=== PATIENT | male | born 1970 | race African-American/Black ===

== ENCOUNTER 2020-11-01 12:31 | Inpatient (IN) | payer OTHER ==
[2020-11-01 13:19] VITALS: BMI 43.6
[2020-11-01] MEDS ORDERED: methaDONE HCL 10 MG TABLET (FOR DETOX USE ONLY) ONE (14:23)
[2020-11-01] MEDS ORDERED: clonazePAM 0.5 MG ODT TABLETS SL PRN (14:33)
[2020-11-01] MEDS ORDERED: MENTHOL/PHENOL 1 EACH UD MM PRN (14:33)
[2020-11-01] MEDS ORDERED: MAGNESIUM HYDROX 2400MG/30ML ORAL SUSPENSION 30 ML CUP PO PRN (14:33)
[2020-11-01] MEDS ORDERED: ONDANSETRON *ODT* 4 MG TABLET SL PRN (14:33)
[2020-11-01] MEDS ORDERED: NICOTINE 10 MG CARTRIDGE (INHALER) IH PRN (14:33)
[2020-11-01] MEDS ORDERED: ACETAMINOPHEN 325 MG TABLET (FP) PO PRN ×2 (14:33)
[2020-11-01] MEDS ORDERED: methaDONE HCL 10 MG TABLET (FOR DETOX USE ONLY) PO ONE (14:33)
[2020-11-01] MEDS ORDERED: MAGNESIUM CITRATE 300 ML BOTTLE PO PRN (14:33)
[2020-11-01] MEDS ORDERED: cloNIDine HCL 0.1 MG TABLET PO PRN (14:33)
[2020-11-01] MEDS ORDERED: MAG HYDROX/AL HYDROX/SIMETH 30 ML UNIT-DOSE CUP PO PRN (14:33)
[2020-11-01] MEDS ORDERED: IBUPROFEN 400 MG TABLET (FP) PO PRN (14:33)
[2020-11-01] MEDS ORDERED: BISMUTH SUBSALICYLATE 262 MG/15 ML BTL PO PRN (14:33)
[2020-11-01 15:55] LABS: HEMATOCRIT 34.9 % (35.4-49); HEMOGLOBIN 11.8 GM/dL (11.7-16.9); MCH 29.9 pg (25.7-33.7); MCHC 33.9 g/dl (32.0-35.9); MEAN CELL VOLUME 88.4 fl (80-96); MEAN PLT VOLUME 7.6 fl (7.5-11.1); PLATELET COUNT 337 10^3/uL (134-434); RBC 3.95 M/mm3 (4.00-5.60); RDW 16.2 % (11.9-15.9); WHITE BLOOD COUNT 6.8 K/mm3 (4.0-10.0)
[2020-11-01 15:56] LABS: ALBUMIN 3.4 g/dl (3.4-5.0); BLOOD UREA NITROGEN 13.4 mg/dL (7-18); CALCIUM 8.5 mg/dL (8.5-10.1)
[2020-11-01 16:00] LABS: CREATININE 0.9 mg/dL (0.55-1.3)
[2020-11-01 16:02] LABS: BILIRUBIN,TOTAL 0.3 mg/dL (0.2-1); TOT PROT 6.8 g/dl (6.4-8.2)
[2020-11-01 16:50] LABS: HIV INTERPRETATION NEGATIVE (NEGATIVE)
[2020-11-01] MEDS: hydrOXYzine PAMOATE 25 MG CAPSULE (FP) PO SCH ×2 (18:06→22:28)
[2020-11-01] MEDS: MELATONIN 5 MG TABLETS PO SCH (22:28)
[2020-11-01] MEDS: THIAMINE HCL 100 MG TABLET (FP) PO SCH (22:28)
[2020-11-02] MEDS: hydrOXYzine PAMOATE 25 MG CAPSULE (FP) PO SCH ×5 (06:43→22:55)
[2020-11-02] MEDS ORDERED: methaDONE HCL 10 MG TABLET (FOR DETOX USE ONLY) ONE (09:23)
[2020-11-02] MEDS: PRENATAL VITAMINS W/ FOLIC ACID TABLET (FP) PO SCH (10:19)
[2020-11-02] MEDS: MELATONIN 5 MG TABLETS PO SCH (22:55)
[2020-11-02] MEDS: THIAMINE HCL 100 MG TABLET (FP) PO SCH (22:55)
[2020-11-03] MEDS: hydrOXYzine PAMOATE 25 MG CAPSULE (FP) PO SCH ×6 (05:36→23:05)
[2020-11-03] MEDS ORDERED: methaDONE HCL 10 MG TABLET (FOR DETOX USE ONLY) PO ONE (10:00)
[2020-11-03] MEDS: METHOCARBAMOL 500 MG TABLET PO PRN (10:13)
[2020-11-03] MEDS: PRENATAL VITAMINS W/ FOLIC ACID TABLET (FP) PO SCH (10:13)
[2020-11-03] MEDS ORDERED: MASKS NR ONE (17:45)
[2020-11-03] MEDS: THIAMINE HCL 100 MG TABLET (FP) PO SCH ×2 (22:41→23:05)
[2020-11-03] MEDS: MELATONIN 5 MG TABLETS PO SCH (22:41)
[2020-11-04] MEDS: hydrOXYzine PAMOATE 25 MG CAPSULE (FP) PO SCH ×5 (07:06→23:21)
[2020-11-04] MEDS ORDERED: methaDONE HCL 10 MG TABLET (FOR DETOX USE ONLY) ONE (09:25)
[2020-11-04] MEDS: METHOCARBAMOL 500 MG TABLET PO PRN (11:03)
[2020-11-04] MEDS: PRENATAL VITAMINS W/ FOLIC ACID TABLET (FP) PO SCH (11:03)
[2020-11-04] MEDS: THIAMINE HCL 100 MG TABLET (FP) PO SCH (23:21)
[2020-11-04] MEDS: MELATONIN 5 MG TABLETS PO SCH (23:21)
[2020-11-05] MEDS: hydrOXYzine PAMOATE 25 MG CAPSULE (FP) PO SCH ×5 (06:19→23:14)
[2020-11-05] MEDS: PRENATAL VITAMINS W/ FOLIC ACID TABLET (FP) PO SCH (09:27)
[2020-11-05] MEDS: METHOCARBAMOL 500 MG TABLET PO PRN (09:27)
[2020-11-05] MEDS ORDERED: methaDONE HCL 10 MG TABLET (FOR DETOX USE ONLY) PO ONE (10:00)
[2020-11-05] MEDS: THIAMINE HCL 100 MG TABLET (FP) PO SCH (23:14)
[2020-11-05] MEDS: MELATONIN 5 MG TABLETS PO SCH (23:14)
[2020-11-06] MEDS: hydrOXYzine PAMOATE 25 MG CAPSULE (FP) PO SCH ×2 (05:44→10:03)
[2020-11-06 09:18] VITALS: BP 148/89; PULSE 85; TEMP 96.8
[2020-11-06] MEDS: PRENATAL VITAMINS W/ FOLIC ACID TABLET (FP) PO SCH (10:03)
== END 2020-11-06 12:45 | disposition other institution (70) | DRG 773 ==
LOC: YASAS 12:31 → Y3N 13:54
PROVIDERS: ADMIT Allergy & Immunology; ATTEND Allergy & Immunology
PROC: HZ2ZZZZ Detoxification Services for Substance Abuse Treatment (ICD-10-PCS; principal; 2020-11-01)
DX: F11.23 Opioid dependence with withdrawal (principal); F17.210 Nicotine dependence, cigarettes, uncomplicated; I69.854 Hemiplegia and hemiparesis following other cerebrovascular disease affecting left non-dominant side; Z91.013 Allergy to seafood; Z91.018 Allergy to other foods
CPT/HCPCS: 36415; 80053; 82947; 85027; 86780; 87389; C9803; U0003; U0005

== ENCOUNTER 2020-11-06 12:48 | Inpatient (IN) | payer OTHER ==
[2020-11-06] MEDS ORDERED: MAGNESIUM HYDROX 2400MG/30ML ORAL SUSPENSION 30 ML CUP PO PRN (15:07)
[2020-11-06] MEDS ORDERED: ACETAMINOPHEN 325 MG TABLET (FP) PO PRN (15:07)
[2020-11-06] MEDS ORDERED: P-EPHED 60MG/TRIPROLIDI 2.5MG TABLET PO PRN (15:07)
[2020-11-06] MEDS ORDERED: MENTHOL/PHENOL 1 EACH UD MM PRN (15:07)
[2020-11-06] MEDS ORDERED: MAG HYDROX/AL HYDROX/SIMETH 30 ML UNIT-DOSE CUP PO PRN (15:07)
[2020-11-06] MEDS ORDERED: IBUPROFEN 400 MG TABLET (FP) PO PRN (15:07)
[2020-11-06] MEDS ORDERED: NICOTINE 10 MG CARTRIDGE (INHALER) IH PRN (15:07)
[2020-11-06] MEDS ORDERED: MAGNESIUM CITRATE 300 ML BOTTLE PO PRN (15:07)
[2020-11-06] MEDS ORDERED: guaiFENesin 200 MG/10 ML 10 ML UNIT-DOSE CUPS PO PRN (15:07)
[2020-11-06] MEDS ORDERED: LOPERAMIDE HCL 2 MG CAPSULE PO PRN (15:07)
[2020-11-06] MEDS: MELATONIN 5 MG TABLETS PO SCH (21:39)
[2020-11-06] MEDS: hydrOXYzine PAMOATE 25 MG CAPSULE (FP) PO PRN (21:39)
[2020-11-06] MEDS: THIAMINE HCL 100 MG TABLET (FP) PO SCH (21:39)
[2020-11-07] MEDS: PRENATAL VITAMINS W/ FOLIC ACID TABLET (FP) PO SCH (10:02)
[2020-11-07] MEDS: hydrOXYzine PAMOATE 25 MG CAPSULE (FP) PO PRN ×2 (10:03→21:51)
[2020-11-07] MEDS: MELATONIN 5 MG TABLETS PO SCH (21:51)
[2020-11-07] MEDS: THIAMINE HCL 100 MG TABLET (FP) PO SCH (21:51)
[2020-11-08] MEDS: PRENATAL VITAMINS W/ FOLIC ACID TABLET (FP) PO SCH (10:34)
[2020-11-08] MEDS: hydrOXYzine PAMOATE 25 MG CAPSULE (FP) PO PRN ×2 (10:35→22:07)
[2020-11-08] MEDS: MELATONIN 5 MG TABLETS PO SCH (22:06)
[2020-11-08] MEDS: THIAMINE HCL 100 MG TABLET (FP) PO SCH (22:07)
[2020-11-09] MEDS: PRENATAL VITAMINS W/ FOLIC ACID TABLET (FP) PO SCH (10:32)
[2020-11-09] MEDS: hydrOXYzine PAMOATE 25 MG CAPSULE (FP) PO PRN ×2 (10:32→21:39)
[2020-11-09] MEDS: THIAMINE HCL 100 MG TABLET (FP) PO SCH (21:39)
[2020-11-09] MEDS: MELATONIN 5 MG TABLETS PO SCH (21:39)
[2020-11-10] MEDS: hydrOXYzine PAMOATE 25 MG CAPSULE (FP) PO PRN ×2 (10:26→22:03)
[2020-11-10] MEDS: PRENATAL VITAMINS W/ FOLIC ACID TABLET (FP) PO SCH (10:26)
[2020-11-10] MEDS: THIAMINE HCL 100 MG TABLET (FP) PO SCH (22:02)
[2020-11-10] MEDS: MELATONIN 5 MG TABLETS PO SCH (22:03)
[2020-11-11] MEDS: PRENATAL VITAMINS W/ FOLIC ACID TABLET (FP) PO SCH (10:31)
[2020-11-11] MEDS: hydrOXYzine PAMOATE 25 MG CAPSULE (FP) PO PRN ×2 (10:31→21:49)
[2020-11-11] MEDS: MELATONIN 5 MG TABLETS PO SCH (21:49)
[2020-11-11] MEDS: THIAMINE HCL 100 MG TABLET (FP) PO SCH (21:49)
[2020-11-12] MEDS: PRENATAL VITAMINS W/ FOLIC ACID TABLET (FP) PO SCH (10:13)
[2020-11-12] MEDS: hydrOXYzine PAMOATE 25 MG CAPSULE (FP) PO PRN ×2 (10:13→21:47)
[2020-11-12] MEDS ORDERED: BUPRENORPHINE/NALOXONE 2 MG/0.5 MG FILM PACKET SL ONE (10:45)
[2020-11-12] MEDS: BUPRENORPHINE/NALOXONE 4 MG/1 MG FILM PACKET SL SCH (19:18)
[2020-11-12] MEDS: THIAMINE HCL 100 MG TABLET (FP) PO SCH (21:46)
[2020-11-12] MEDS: MELATONIN 5 MG TABLETS PO SCH (21:46)
[2020-11-13] MEDS: PRENATAL VITAMINS W/ FOLIC ACID TABLET (FP) PO SCH (10:41)
[2020-11-13] MEDS: hydrOXYzine PAMOATE 25 MG CAPSULE (FP) PO PRN ×2 (10:41→21:36)
[2020-11-13] MEDS: BUPRENORPHINE/NALOXONE 4 MG/1 MG FILM PACKET SL SCH ×2 (10:42→20:10)
[2020-11-13] MEDS: MELATONIN 5 MG TABLETS PO SCH (21:36)
[2020-11-13] MEDS: THIAMINE HCL 100 MG TABLET (FP) PO SCH (21:36)
[2020-11-14] MEDS: hydrOXYzine PAMOATE 25 MG CAPSULE (FP) PO PRN ×2 (10:38→22:07)
[2020-11-14] MEDS: PRENATAL VITAMINS W/ FOLIC ACID TABLET (FP) PO SCH (10:38)
[2020-11-14] MEDS: BUPRENORPHINE/NALOXONE 4 MG/1 MG FILM PACKET SL SCH ×2 (10:39→20:19)
[2020-11-14] MEDS: MELATONIN 5 MG TABLETS PO SCH (22:07)
[2020-11-14] MEDS: THIAMINE HCL 100 MG TABLET (FP) PO SCH (22:07)
[2020-11-15] MEDS: hydrOXYzine PAMOATE 25 MG CAPSULE (FP) PO PRN ×2 (10:50→21:03)
[2020-11-15] MEDS: BUPRENORPHINE/NALOXONE 4 MG/1 MG FILM PACKET SL SCH ×2 (10:50→21:02)
[2020-11-15] MEDS: PRENATAL VITAMINS W/ FOLIC ACID TABLET (FP) PO SCH (10:50)
[2020-11-15] MEDS: MELATONIN 5 MG TABLETS PO SCH (21:02)
[2020-11-15] MEDS: THIAMINE HCL 100 MG TABLET (FP) PO SCH (21:02)
[2020-11-16] MEDS: hydrOXYzine PAMOATE 25 MG CAPSULE (FP) PO PRN (10:13)
[2020-11-16] MEDS: BUPRENORPHINE/NALOXONE 4 MG/1 MG FILM PACKET SL SCH (10:13)
[2020-11-16] MEDS: PRENATAL VITAMINS W/ FOLIC ACID TABLET (FP) PO SCH (10:13)
[2020-11-16] MEDS: BUPRENORPHINE/NALOXONE 8 MG/2 MG FILM PACKET SL SCH (20:08)
[2020-11-16] MEDS: MELATONIN 5 MG TABLETS PO SCH (21:23)
[2020-11-16] MEDS: THIAMINE HCL 100 MG TABLET (FP) PO SCH (21:23)
[2020-11-17] MEDS: PRENATAL VITAMINS W/ FOLIC ACID TABLET (FP) PO SCH (10:00)
[2020-11-17] MEDS: hydrOXYzine PAMOATE 25 MG CAPSULE (FP) PO PRN (10:00)
[2020-11-17] MEDS: BUPRENORPHINE/NALOXONE 8 MG/2 MG FILM PACKET SL SCH ×2 (10:00→21:32)
[2020-11-17] MEDS: THIAMINE HCL 100 MG TABLET (FP) PO SCH (21:31)
[2020-11-17] MEDS: MELATONIN 5 MG TABLETS PO SCH (21:31)
[2020-11-18] MEDS: PRENATAL VITAMINS W/ FOLIC ACID TABLET (FP) PO SCH (10:15)
[2020-11-18] MEDS: hydrOXYzine PAMOATE 25 MG CAPSULE (FP) PO PRN (10:15)
[2020-11-18] MEDS: BUPRENORPHINE/NALOXONE 8 MG/2 MG FILM PACKET SL SCH ×2 (10:15→20:32)
[2020-11-18] MEDS ORDERED: ALBUTEROL SO4 HFA INHALER IH PRN (14:39)
[2020-11-18] MEDS: THIAMINE HCL 100 MG TABLET (FP) PO SCH (21:39)
[2020-11-18] MEDS: MELATONIN 5 MG TABLETS PO SCH (21:40)
[2020-11-19 07:29] VITALS: BP 136/88; PULSE 105; TEMP 97.7
[2020-11-19] MEDS: BUPRENORPHINE/NALOXONE 8 MG/2 MG FILM PACKET SL SCH ×2 (10:24→21:35)
[2020-11-19] MEDS: PRENATAL VITAMINS W/ FOLIC ACID TABLET (FP) PO SCH (10:24)
[2020-11-19] MEDS: THIAMINE HCL 100 MG TABLET (FP) PO SCH (21:35)
[2020-11-19] MEDS: MELATONIN 5 MG TABLETS PO SCH (21:35)
[2020-11-19] MEDS: hydrOXYzine PAMOATE 25 MG CAPSULE (FP) PO PRN (21:36)
[2020-11-20] MEDS: PRENATAL VITAMINS W/ FOLIC ACID TABLET (FP) PO SCH (10:42)
[2020-11-20] MEDS: BUPRENORPHINE/NALOXONE 8 MG/2 MG FILM PACKET SL SCH ×2 (10:42→20:14)
[2020-11-20] MEDS: hydrOXYzine PAMOATE 25 MG CAPSULE (FP) PO PRN ×2 (10:43→21:42)
[2020-11-20] MEDS: MELATONIN 5 MG TABLETS PO SCH (21:41)
[2020-11-20] MEDS: THIAMINE HCL 100 MG TABLET (FP) PO SCH (21:41)
[2020-11-21] MEDS: PRENATAL VITAMINS W/ FOLIC ACID TABLET (FP) PO SCH (10:04)
[2020-11-21] MEDS: BUPRENORPHINE/NALOXONE 8 MG/2 MG FILM PACKET SL SCH ×2 (10:04→20:04)
[2020-11-21] MEDS: THIAMINE HCL 100 MG TABLET (FP) PO SCH (22:20)
[2020-11-21] MEDS: hydrOXYzine PAMOATE 25 MG CAPSULE (FP) PO PRN (22:20)
[2020-11-21] MEDS: MELATONIN 5 MG TABLETS PO SCH (22:20)
[2020-11-22] MEDS: hydrOXYzine PAMOATE 25 MG CAPSULE (FP) PO PRN (10:17)
[2020-11-22] MEDS: PRENATAL VITAMINS W/ FOLIC ACID TABLET (FP) PO SCH (10:17)
[2020-11-22] MEDS: BUPRENORPHINE/NALOXONE 8 MG/2 MG FILM PACKET SL SCH ×2 (10:18→20:22)
[2020-11-22] MEDS: MELATONIN 5 MG TABLETS PO SCH (21:46)
[2020-11-22] MEDS: THIAMINE HCL 100 MG TABLET (FP) PO SCH (21:47)
[2020-11-23] MEDS ORDERED: PT OWN MED DRAWER 7, Y5N ONE (08:42)
[2020-11-23] MEDS: PRENATAL VITAMINS W/ FOLIC ACID TABLET (FP) PO SCH (10:23)
[2020-11-23] MEDS: hydrOXYzine PAMOATE 25 MG CAPSULE (FP) PO PRN (10:23)
[2020-11-23] MEDS: BUPRENORPHINE/NALOXONE 8 MG/2 MG FILM PACKET SL SCH ×2 (10:25→21:30)
[2020-11-23] MEDS: MELATONIN 5 MG TABLETS PO SCH (21:29)
[2020-11-23] MEDS: THIAMINE HCL 100 MG TABLET (FP) PO SCH (21:29)
[2020-11-24] MEDS: BUPRENORPHINE/NALOXONE 8 MG/2 MG FILM PACKET SL SCH (09:05)
[2020-11-24] MEDS: PRENATAL VITAMINS W/ FOLIC ACID TABLET (FP) PO SCH (09:05)
== END 2020-11-24 09:20 | disposition home or self-care (01) | DRG 772 ==
LOC: YASAS 12:48 → Y5N 12:51
PROVIDERS: ADMIT Allergy & Immunology; ATTEND Allergy & Immunology
PROC: HZ42ZZZ Group Counseling for Substance Abuse Treatment, Cognitive-Behavioral (ICD-10-PCS; principal; 2020-11-06)
DX: F11.20 Opioid dependence, uncomplicated (principal); F17.210 Nicotine dependence, cigarettes, uncomplicated; I69.854 Hemiplegia and hemiparesis following other cerebrovascular disease affecting left non-dominant side

== ENCOUNTER 2021-06-16 13:26 | Inpatient (IN) | payer OTHER ==
[2021-06-16] MEDS ORDERED: IBUPROFEN 400 MG TABLET (FP) PO PRN (13:57)
[2021-06-16] MEDS ORDERED: ACETAMINOPHEN 325 MG TABLET (FP) PO PRN ×2 (13:57)
[2021-06-16] MEDS ORDERED: ONDANSETRON *ODT* 4 MG TABLET SL PRN (13:57)
[2021-06-16] MEDS ORDERED: MAGNESIUM HYDROX 2400MG/30ML ORAL SUSPENSION 30 ML CUP PO PRN (13:57)
[2021-06-16] MEDS ORDERED: MAGNESIUM CITRATE 300 ML BOTTLE PO PRN (13:57)
[2021-06-16] MEDS ORDERED: NICOTINE 10 MG CARTRIDGE (INHALER) IH PRN (13:57)
[2021-06-16] MEDS ORDERED: MENTHOL/PHENOL 1 EACH UD MM PRN (13:57)
[2021-06-16] MEDS ORDERED: BISMUTH SUBSALICYLATE 524 MG/30 ML PO PRN (13:57)
[2021-06-16] MEDS ORDERED: cloNIDine HCL 0.1 MG TABLET PO PRN (13:57)
[2021-06-16] MEDS ORDERED: LOPERAMIDE HCL 2 MG CAPSULE PO PRN (13:57)
[2021-06-16] MEDS ORDERED: MAG HYDROX/AL HYDROX/SIMETH 30 ML UNIT-DOSE CUP PO PRN (13:57)
[2021-06-16] MEDS ORDERED: METHOCARBAMOL 500 MG TABLET PO PRN (13:57)
[2021-06-16 15:20] VITALS: BMI 43.0
[2021-06-16 15:30] LABS: HEMATOCRIT 39.6 % (35.4-49); HEMOGLOBIN 13.6 GM/dL (11.7-16.9); MCH 30.3 pg (25.7-33.7); MCHC 34.3 g/dl (32.0-35.9); MEAN CELL VOLUME 88.4 fl (80-96); MEAN PLT VOLUME 7.4 fl (7.5-11.1); PLATELET COUNT 397 10^3/uL (134-434); RBC 4.48 M/mm3 (4.00-5.60); RDW 14.8 % (11.9-15.9); WHITE BLOOD COUNT 6.8 K/mm3 (4.0-10.0)
[2021-06-16 15:41] LABS: BLOOD UREA NITROGEN 19.6 mg/dL (7-18); CALCIUM 9.3 mg/dL (8.5-10.1)
[2021-06-16 15:44] LABS: CREATININE 1.3 mg/dL (0.55-1.3)
[2021-06-16 15:46] LABS: BILIRUBIN,TOTAL 0.4 mg/dL (0.2-1); TOT PROT 7.7 g/dl (6.4-8.2)
[2021-06-16] MEDS ORDERED: methaDONE HCL 10 MG TABLET (FOR DETOX USE ONLY) PO ONE (17:30)
[2021-06-16] MEDS: PRENATAL VITAMINS W/ FOLIC ACID TABLET (FP) PO SCH (20:32)
[2021-06-16] MEDS: hydrOXYzine PAMOATE 25 MG CAPSULE (FP) PO SCH ×3 (20:33→22:53)
[2021-06-16] MEDS: NICOTINE 14 MG/24 HOURS TOPICAL PATCH TD SCH (20:40)
[2021-06-16] MEDS ORDERED: MELATONIN 5 MG TABLETS PO SCH (22:00)
[2021-06-16] MEDS: THIAMINE HCL 100 MG TABLET (FP) PO SCH (22:54)
[2021-06-17] MEDS: hydrOXYzine PAMOATE 25 MG CAPSULE (FP) PO SCH ×5 (06:25→23:23)
[2021-06-17] MEDS ORDERED: methaDONE HCL 10 MG TABLET (FOR DETOX USE ONLY) ONE (09:18)
[2021-06-17] MEDS: NICOTINE 14 MG/24 HOURS TOPICAL PATCH TD SCH (11:14)
[2021-06-17] MEDS: PRENATAL VITAMINS W/ FOLIC ACID TABLET (FP) PO SCH (11:14)
[2021-06-17] MEDS: diazePAM 5 MG TABLET PO PRN ×2 (14:34→19:28)
[2021-06-17] MEDS: traZODone HCL 100 MG TABLET (FP) PO SCH (23:23)
[2021-06-17] MEDS: THIAMINE HCL 100 MG TABLET (FP) PO SCH (23:24)
[2021-06-18] MEDS: hydrOXYzine PAMOATE 25 MG CAPSULE (FP) PO SCH ×5 (05:42→22:44)
[2021-06-18] MEDS ORDERED: methaDONE HCL 10 MG TABLET (FOR DETOX USE ONLY) PO ONE (10:00)
[2021-06-18] MEDS: PRENATAL VITAMINS W/ FOLIC ACID TABLET (FP) PO SCH (10:52)
[2021-06-18] MEDS: NICOTINE 14 MG/24 HOURS TOPICAL PATCH TD SCH (10:53)
[2021-06-18] MEDS: diazePAM 5 MG TABLET PO PRN ×2 (10:56→17:52)
[2021-06-18] MEDS: traZODone HCL 100 MG TABLET (FP) PO SCH (22:43)
[2021-06-18] MEDS: THIAMINE HCL 100 MG TABLET (FP) PO SCH (22:43)
[2021-06-19] MEDS: hydrOXYzine PAMOATE 25 MG CAPSULE (FP) PO SCH ×5 (06:05→22:44)
[2021-06-19] MEDS ORDERED: methaDONE HCL 10 MG TABLET (FOR DETOX USE ONLY) ONE (09:02)
[2021-06-19] MEDS: NICOTINE 14 MG/24 HOURS TOPICAL PATCH TD SCH (10:27)
[2021-06-19] MEDS: PRENATAL VITAMINS W/ FOLIC ACID TABLET (FP) PO SCH (11:03)
[2021-06-19] MEDS: diazePAM 5 MG TABLET PO PRN ×2 (11:07→18:25)
[2021-06-19] MEDS: THIAMINE HCL 100 MG TABLET (FP) PO SCH (22:44)
[2021-06-19] MEDS: traZODone HCL 100 MG TABLET (FP) PO SCH (22:44)
[2021-06-20] MEDS: hydrOXYzine PAMOATE 25 MG CAPSULE (FP) PO SCH ×5 (06:30→22:08)
[2021-06-20] MEDS ORDERED: methaDONE HCL 10 MG TABLET (FOR DETOX USE ONLY) PO ONE (10:00)
[2021-06-20] MEDS: PRENATAL VITAMINS W/ FOLIC ACID TABLET (FP) PO SCH (10:33)
[2021-06-20] MEDS: diazePAM 5 MG TABLET PO PRN (10:35)
[2021-06-20] MEDS: NICOTINE 14 MG/24 HOURS TOPICAL PATCH TD SCH (10:38)
[2021-06-20] MEDS: traZODone HCL 100 MG TABLET (FP) PO SCH (22:08)
[2021-06-20] MEDS: THIAMINE HCL 100 MG TABLET (FP) PO SCH (22:08)
[2021-06-21] MEDS: hydrOXYzine PAMOATE 25 MG CAPSULE (FP) PO SCH ×2 (06:40→09:51)
[2021-06-21] MEDS: NICOTINE 14 MG/24 HOURS TOPICAL PATCH TD SCH (09:51)
[2021-06-21] MEDS: PRENATAL VITAMINS W/ FOLIC ACID TABLET (FP) PO SCH (09:51)
[2021-06-21 13:03] VITALS: BP 116/55; PULSE 97; TEMP 96.9
[2021-06-21 14:11] LABS: SARS-CoV-2 NAA Not Detected (Not Detected)
== END 2021-06-21 14:29 | disposition other institution (70) | DRG 773 ==
LOC: YASAS 13:26 → Y6N 16:45 → MERGE 16:45
PROVIDERS: ADMIT Allergy & Immunology; ATTEND Allergy & Immunology
PROC: HZ2ZZZZ Detoxification Services for Substance Abuse Treatment (ICD-10-PCS; principal; 2021-06-16)
DX: F11.23 Opioid dependence with withdrawal (principal); F17.210 Nicotine dependence, cigarettes, uncomplicated; F19.280 Other psychoactive substance dependence with psychoactive substance-induced anxiety disorder; F19.282 Other psychoactive substance dependence with psychoactive substance-induced sleep disorder; F33.1 Major depressive disorder, recurrent, moderate; F34.1 Dysthymic disorder; F43.10 Post-traumatic stress disorder, unspecified; I69.854 Hemiplegia and hemiparesis following other cerebrovascular disease affecting left non-dominant side; E66.01 Morbid (severe) obesity due to excess calories; Z68.41 Body mass index [BMI] 40.0-44.9, adult; Z99.89 Dependence on other enabling machines and devices; Z91.010 Allergy to peanuts; Z88.0 Allergy status to penicillin; Z91.013 Allergy to seafood; Z91.018 Allergy to other foods; Z59.01 Sheltered homelessness; Z56.0 Unemployment, unspecified
CPT/HCPCS: 36415; 80053; 85027; 86780; 93005; 93010; C9803-CS; U0003; U0005

== ENCOUNTER 2021-06-21 14:44 | Inpatient (IN) | payer OTHER ==
[~2021-06-21 14:44] MED LIST: ACETAMINOPHEN 325 MG TABLET (FP) PO PRN; IBUPROFEN 400 MG TABLET (FP) PO PRN; LOPERAMIDE HCL 2 MG CAPSULE PO PRN; MAG HYDROX/AL HYDROX/SIMETH 30 ML UNIT-DOSE CUP PO PRN; MAGNESIUM CITRATE 300 ML BOTTLE PO PRN; MAGNESIUM HYDROX 2400MG/30ML ORAL SUSPENSION 30 ML CUP PO PRN; NICOTINE 10 MG CARTRIDGE (INHALER) IH PRN; NICOTINE POLACRILEX 2 MG GUM BUC PRN; P-EPHED 60MG/TRIPROLIDI 2.5MG TABLET PO PRN; guaiFENesin 200 MG/10 ML 10 ML UNIT-DOSE CUPS PO PRN; hydrOXYzine PAMOATE 25 MG CAPSULE (FP) PO PRN
[2021-06-21 15:27] VITALS: BP 101/71; PULSE 89; TEMP 96.4
[2021-06-21] MEDS ORDERED: traZODone HCL 100 MG TABLET (FP) PO SCH (22:00)
[2021-06-21] MEDS ORDERED: MELATONIN 5 MG TABLETS PO SCH (22:00)
[2021-06-21] MEDS ORDERED: THIAMINE HCL 100 MG TABLET (FP) PO SCH (22:00)
[2021-06-22] MEDS ORDERED: PRENATAL VITAMINS W/ FOLIC ACID TABLET (FP) PO SCH (10:00)
[2021-06-22] MEDS ORDERED: NICOTINE 14 MG/24 HOURS TOPICAL PATCH TD SCH (10:00)
== END 2021-06-21 19:16 | disposition left against medical advice (07) | DRG 770 ==
LOC: YASAS 14:44 → Y3W 14:45
PROVIDERS: ADMIT Allergy & Immunology; ATTEND Allergy & Immunology
PROC: HZ42ZZZ Group Counseling for Substance Abuse Treatment, Cognitive-Behavioral (ICD-10-PCS; principal; 2021-06-21)
DX: F11.20 Opioid dependence, uncomplicated (principal); F17.210 Nicotine dependence, cigarettes, uncomplicated; F32.A Depression, unspecified; F43.10 Post-traumatic stress disorder, unspecified; I69.854 Hemiplegia and hemiparesis following other cerebrovascular disease affecting left non-dominant side; E66.01 Morbid (severe) obesity due to excess calories; Z68.41 Body mass index [BMI] 40.0-44.9, adult

== ENCOUNTER 2021-08-09 14:03 | Inpatient (IN) | payer OTHER ==
[2021-08-09] MEDS ORDERED: MAG HYDROX/AL HYDROX/SIMETH 30 ML UNIT-DOSE CUP PO PRN (15:16)
[2021-08-09] MEDS ORDERED: NALOXONE HCL 0.4 MG/ML VIAL IM PRN (15:16)
[2021-08-09] MEDS ORDERED: LOPERAMIDE HCL 2 MG CAPSULE PO PRN (15:16)
[2021-08-09] MEDS ORDERED: MAGNESIUM HYDROX 2400MG/30ML ORAL SUSPENSION 30 ML CUP PO PRN (15:16)
[2021-08-09] MEDS ORDERED: NICOTINE 10 MG CARTRIDGE (INHALER) IH PRN (15:16)
[2021-08-09] MEDS ORDERED: DICYCLOMINE HCL 10 MG CAPSULE PO PRN (15:16)
[2021-08-09] MEDS ORDERED: ACETAMINOPHEN 325 MG TABLET (FP) PO PRN ×2 (15:16)
[2021-08-09] MEDS ORDERED: IBUPROFEN 400 MG TABLET (FP) PO PRN (15:16)
[2021-08-09] MEDS ORDERED: BISMUTH SUBSALICYLATE 524 MG/30 ML PO PRN (15:16)
[2021-08-09] MEDS ORDERED: BENZOCAINE/MENTHOL (CHLORASEPTIC ) LOZENGE MM PRN (15:16)
[2021-08-09] MEDS ORDERED: MAGNESIUM CITRATE 300 ML BOTTLE PO PRN (15:16)
[2021-08-09 15:50] VITALS: BMI 42.1
[2021-08-09] MEDS ORDERED: methaDONE HCL 10 MG TABLET (FOR DETOX USE ONLY) PO ONE (16:16)
[2021-08-09] MEDS: PRENATAL VITAMINS W/ FOLIC ACID TABLET (FP) PO SCH (17:26)
[2021-08-09] MEDS: NICOTINE 14 MG/24 HOURS TOPICAL PATCH TD SCH (17:26)
[2021-08-09] MEDS: cloNIDine HCL 0.1 MG TABLET PO PRN (22:23)
[2021-08-09] MEDS: THIAMINE HCL 100 MG TABLET (FP) PO SCH (22:23)
[2021-08-09] MEDS: MELATONIN 5 MG TABLETS PO SCH (22:23)
[2021-08-10] MEDS ORDERED: methaDONE HCL 10 MG TABLET (FOR DETOX USE ONLY) ONE (09:36)
[2021-08-10] MEDS: PRENATAL VITAMINS W/ FOLIC ACID TABLET (FP) PO SCH (09:54)
[2021-08-10] MEDS: METHOCARBAMOL 500 MG TABLET PO PRN ×2 (09:54→18:05)
[2021-08-10] MEDS: FAMOTIDINE 20 MG TABLET PO SCH ×2 (09:55→22:30)
[2021-08-10] MEDS: NICOTINE 14 MG/24 HOURS TOPICAL PATCH TD SCH (09:59)
[2021-08-10 10:26] LABS: HEMATOCRIT 36.8 % (35.4-49); HEMOGLOBIN 12.7 GM/dL (11.7-16.9); MCH 30.3 pg (25.7-33.7); MCHC 34.5 g/dl (32.0-35.9); MEAN CELL VOLUME 87.8 fl (80-96); MEAN PLT VOLUME 7.5 fl (7.5-11.1); PLATELET COUNT 356 10^3/uL (134-434); RBC 4.19 M/mm3 (4.00-5.60); RDW 14.3 % (11.9-15.9); WHITE BLOOD COUNT 5.9 K/mm3 (4.0-10.0)
[2021-08-10 10:36] LABS: ALBUMIN 3.5 g/dl (3.4-5.0); BLOOD UREA NITROGEN 12.3 mg/dL (7-18); CALCIUM 8.9 mg/dL (8.5-10.1)
[2021-08-10 10:39] LABS: CREATININE 0.9 mg/dL (0.55-1.3)
[2021-08-10 10:41] LABS: BILIRUBIN,TOTAL 0.4 mg/dL (0.2-1); TOT PROT 6.7 g/dl (6.4-8.2)
[2021-08-10] MEDS: cloNIDine HCL 0.1 MG TABLET PO PRN (18:04)
[2021-08-10] MEDS: diazePAM 5 MG TABLET PO PRN (19:13)
[2021-08-10] MEDS: diazePAM 5 MG TABLET PO SCH ×2 (19:20→22:31)
[2021-08-10] MEDS: MELATONIN 5 MG TABLETS PO SCH (22:30)
[2021-08-10] MEDS: THIAMINE HCL 100 MG TABLET (FP) PO SCH (22:31)
[2021-08-11] MEDS: diazePAM 5 MG TABLET PO SCH ×4 (06:07→22:34)
[2021-08-11] MEDS ORDERED: methaDONE HCL 10 MG TABLET (FOR DETOX USE ONLY) PO ONE (10:00)
[2021-08-11] MEDS: PRENATAL VITAMINS W/ FOLIC ACID TABLET (FP) PO SCH (10:44)
[2021-08-11] MEDS: METHOCARBAMOL 500 MG TABLET PO PRN (10:45)
[2021-08-11] MEDS: FAMOTIDINE 20 MG TABLET PO SCH ×2 (10:45→22:35)
[2021-08-11] MEDS: NICOTINE 14 MG/24 HOURS TOPICAL PATCH TD SCH (10:46)
[2021-08-11 16:10] LABS: SARS-CoV-2 NAA Not Detected (Not Detected)
[2021-08-11] MEDS: MELATONIN 5 MG TABLETS PO SCH (22:34)
[2021-08-11] MEDS: THIAMINE HCL 100 MG TABLET (FP) PO SCH (22:34)
[2021-08-12] MEDS: diazePAM 5 MG TABLET PO SCH ×3 (05:34→22:20)
[2021-08-12] MEDS ORDERED: methaDONE HCL 10 MG TABLET (FOR DETOX USE ONLY) ONE (09:45)
[2021-08-12] MEDS: PRENATAL VITAMINS W/ FOLIC ACID TABLET (FP) PO SCH (10:03)
[2021-08-12] MEDS: METHOCARBAMOL 500 MG TABLET PO PRN (10:03)
[2021-08-12] MEDS: FAMOTIDINE 20 MG TABLET PO SCH ×2 (10:03→22:20)
[2021-08-12] MEDS: diazePAM 5 MG TABLET PO PRN ×2 (10:04→18:17)
[2021-08-12] MEDS: NICOTINE 14 MG/24 HOURS TOPICAL PATCH TD SCH (10:04)
[2021-08-12] MEDS ORDERED: traZODone HCL 100 MG TABLET (FP) PO SCH (22:00)
[2021-08-12] MEDS: MELATONIN 5 MG TABLETS PO SCH (22:20)
[2021-08-12] MEDS: THIAMINE HCL 100 MG TABLET (FP) PO SCH (22:20)
[2021-08-13] MEDS: diazePAM 5 MG TABLET PO SCH ×2 (05:18→19:01)
[2021-08-13] MEDS ORDERED: methaDONE HCL 10 MG TABLET (FOR DETOX USE ONLY) PO ONE (10:00)
[2021-08-13] MEDS: PRENATAL VITAMINS W/ FOLIC ACID TABLET (FP) PO SCH (10:26)
[2021-08-13] MEDS: NICOTINE 14 MG/24 HOURS TOPICAL PATCH TD SCH (10:27)
[2021-08-13] MEDS: FAMOTIDINE 20 MG TABLET PO SCH (10:27)
[2021-08-13 16:59] VITALS: BP 104/60; PULSE 86; TEMP 98.8
[2021-08-14] MEDS ORDERED: diazePAM 5 MG TABLET PO ONE (06:00)
== END 2021-08-13 17:31 | disposition home or self-care (01) | DRG 773 ==
LOC: YASAS 14:03 → Y6N 15:32
PROVIDERS: ADMIT Allergy & Immunology; ATTEND Surgery
PROC: HZ2ZZZZ Detoxification Services for Substance Abuse Treatment (ICD-10-PCS; principal; 2021-08-09)
DX: F11.23 Opioid dependence with withdrawal (principal); F10.230 Alcohol dependence with withdrawal, uncomplicated; F14.20 Cocaine dependence, uncomplicated; F17.210 Nicotine dependence, cigarettes, uncomplicated; F19.282 Other psychoactive substance dependence with psychoactive substance-induced sleep disorder; F34.1 Dysthymic disorder; F43.10 Post-traumatic stress disorder, unspecified; I69.854 Hemiplegia and hemiparesis following other cerebrovascular disease affecting left non-dominant side; E66.01 Morbid (severe) obesity due to excess calories; Z68.41 Body mass index [BMI] 40.0-44.9, adult; Z99.89 Dependence on other enabling machines and devices; Z59.01 Sheltered homelessness; Z56.0 Unemployment, unspecified; Z91.018 Allergy to other foods
CPT/HCPCS: 36415; 80053; 85027; 86780; C9803-CS; J0735; U0003; U0005

== ENCOUNTER 2024-09-23 14:16 | Inpatient (IN) | payer OTHER ==
[2024-09-23 14:55] VITALS: BMI 44.3
[2024-09-23] MEDS ORDERED: LOPERAMIDE HCL 2 MG CAPSULE PO PRN (15:06)
[2024-09-23] MEDS ORDERED: IBUPROFEN 600 MG TABLET (FP) PO PRN (15:06)
[2024-09-23] MEDS ORDERED: POLYETHYLENE GLYCOL (HEALTHYLAX) 3350 17 GM PACKET PO PRN (15:06)
[2024-09-23] MEDS ORDERED: IBUPROFEN 400 MG TABLET (FP) PO PRN (15:06)
[2024-09-23] MEDS ORDERED: MAGNESIUM HYDROX 2400MG/30ML ORAL SUSPENSION 30 ML CUP PO PRN (15:06)
[2024-09-23] MEDS ORDERED: MAG HYDROX/AL HYDROX/SIMETH 30 ML UNIT-DOSE CUP PO PRN (15:06)
[2024-09-23] MEDS ORDERED: NALOXONE (NARCAN) HCL 4 MG/0.1 ML SPRAY NS PRN (15:06)
[2024-09-23] MEDS ORDERED: NICOTINE POLACRILEX 2 MG LOZENGE BC PRN (15:06)
[2024-09-23] MEDS ORDERED: ACETAMINOPHEN 325 MG TABLET (FP) PO PRN (15:06)
[2024-09-23] MEDS ORDERED: NICOTINE POLACRILEX 2 MG GUM BUC PRN (15:06)
[2024-09-23] MEDS ORDERED: guaiFENesin 600 MG TABLET.ER (FP) PO PRN (15:06)
[2024-09-23] MEDS ORDERED: P-EPHED 60MG/TRIPROLIDI 2.5MG TABLET PO PRN (15:06)
[2024-09-23] MEDS ORDERED: BENZOCAINE/MENTHOL (CHLORASEPTIC ) LOZENGE MM PRN (15:06)
[2024-09-23] MEDS ORDERED: BENZONATATE 200 MG CAPSULE PO PRN (15:06)
[2024-09-23] MEDS: THIAMINE 100 MG TABLET PO SCH (20:59)
[2024-09-23] MEDS: MELATONIN 5 MG TABLETS PO SCH (20:59)
[2024-09-24] MEDS: PANTOPRAZOLE 20 MG TABLET PO SCH (10:21)
[2024-09-24] MEDS: PRENATAL VITAMINS W/ FOLIC ACID TABLET (FP) PO SCH (10:21)
[2024-09-24 11:40] LABS: MCHC 31.4 g/dl (32.3-36.5); MEAN CELL VOLUME 89.6 fl (79.0-92.2); MEAN PLT VOLUME 9.8 fl (9.4-12.4); RDW 15.9 % (12.2-16.1)
[2024-09-24 12:08] LABS: CO2 28.0 mmol/L (21-32); GLUCOSE,RANDOM 112.0 mg/dL (74-106)
[2024-09-24 12:11] LABS: CREATININE 1.0 mg/dL (0.55-1.3); SGOT/AST 27.0 U/L (15-37); SGPT/ALT 56.0 U/L (13-61)
[2024-09-24 12:12] LABS: TOT PROT 7.9 g/dl (6.4-8.2)
[2024-09-24 12:14] LABS: ALK PHOS 110.0 U/L (45-117)
[2024-09-24 12:21] LABS: SYPHILIS W/ RPR CONF NON-REACTIVE (NONREACTIVE)
[2024-09-24 12:50] LABS: HCV DIAGNOSTIC IN-HOUSE W/RFLX NON-REACTIVE (NONREACTIVE)
[2024-09-24] MEDS: TAMSULOSIN HCL 0.4 MG CAP PO SCH (15:39)
[2024-09-24 17:11] LABS: URINE APPEARANCE CLEAR; URINE BILIRUBIN NEGATIVE (NEGATIVE); URINE COLOR YELLOW; URINE GLUCOSE (UA) NEGATIVE (NEGATIVE); URINE KETONE TRACE (NEGATIVE); URINE LEUK ESTERASE NEGATIVE (NEGATIVE); URINE NITRITE NEGATIVE (NEGATIVE); URINE PROTEIN TRACE (NEGATIVE); URINE UROBILINOGEN 1.0 mg/dL (0.2-1.0)
[2024-09-24] MEDS: hydrOXYzine PAMOATE 25 MG CAPSULE (FP) PO PRN (21:32)
[2024-09-25 22:03] VITALS: RESP 18
[2024-09-26 06:07] VITALS: TEMP 97.3
[2024-09-26 10:17] VITALS: BP 107/68; PULSE 90
== END 2024-09-26 14:33 | disposition left against medical advice (07) | DRG 770 ==
LOC: YASAS 14:16 → Y3W 16:15
PROVIDERS: ADMIT Family Medicine; ATTEND Psychiatry & Neurology Pain Medicine
PROC: HZ42ZZZ Group Counseling for Substance Abuse Treatment, Cognitive-Behavioral (ICD-10-PCS; principal; 2024-09-23)
DX: F11.20 Opioid dependence, uncomplicated (principal); I10 Essential (primary) hypertension; I69.354 Hemiplegia and hemiparesis following cerebral infarction affecting left non-dominant side; K21.9 Gastro-esophageal reflux disease without esophagitis; M54.50 Low back pain, unspecified; F32.A Depression, unspecified; R26.81 Unsteadiness on feet; F17.210 Nicotine dependence, cigarettes, uncomplicated
CPT/HCPCS: 36415; 80053; 80305; 80307; 81003; 85027; 86780; 86803; 87811; 93005; 93010

== ENCOUNTER 2024-12-10 10:31 | Inpatient (IN) | payer OTHER ==
[2024-12-10 11:05] VITALS: BMI 45.0
[2024-12-10] MEDS ORDERED: NALOXONE (NARCAN) HCL 4 MG/0.1 ML SPRAY NS PRN (11:48)
[2024-12-10] MEDS ORDERED: IBUPROFEN 400 MG TABLET (FP) PO PRN (11:48)
[2024-12-10] MEDS ORDERED: NICOTINE POLACRILEX 2 MG GUM BUC PRN (11:48)
[2024-12-10] MEDS ORDERED: BISMUTH SUBSALICYLATE 524 MG/30 ML PO PRN (11:48)
[2024-12-10] MEDS ORDERED: BENZOCAINE/MENTHOL (CHLORASEPTIC ) LOZENGE MM PRN (11:48)
[2024-12-10] MEDS ORDERED: BENZONATATE 200 MG CAPSULE PO PRN (11:48)
[2024-12-10] MEDS ORDERED: DICYCLOMINE HCL 10 MG CAPSULE PO PRN (11:48)
[2024-12-10] MEDS ORDERED: POLYETHYLENE GLYCOL (HEALTHYLAX) 3350 17 GM PACKET PO PRN (11:48)
[2024-12-10] MEDS ORDERED: IBUPROFEN 600 MG TABLET (FP) PO PRN (11:48)
[2024-12-10] MEDS ORDERED: METHOCARBAMOL 500 MG TABLET PO PRN (11:48)
[2024-12-10] MEDS ORDERED: guaiFENesin 600 MG TABLET.ER (FP) PO PRN (11:48)
[2024-12-10] MEDS ORDERED: MAGNESIUM HYDROX 2400MG/30ML ORAL SUSPENSION 30 ML CUP PO PRN (11:48)
[2024-12-10] MEDS ORDERED: hydrOXYzine PAMOATE 25 MG CAPSULE (FP) PO PRN (11:48)
[2024-12-10] MEDS ORDERED: ACETAMINOPHEN 325 MG TABLET (FP) PO PRN (11:48)
[2024-12-10] MEDS ORDERED: LOPERAMIDE HCL 2 MG CAPSULE PO PRN (11:48)
[2024-12-10] MEDS ORDERED: ONDANSETRON *ODT* 4 MG TABLET SL PRN (11:48)
[2024-12-10] MEDS ORDERED: MAG HYDROX/AL HYDROX/SIMETH 30 ML UNIT-DOSE CUP PO PRN (11:48)
[2024-12-10] MEDS: MELATONIN 5 MG TABLETS PO SCH (22:20)
[2024-12-10] MEDS: THIAMINE 100 MG TABLET PO SCH (22:20)
[2024-12-11] MEDS: PRENATAL VITAMINS W/ FOLIC ACID TABLET (FP) PO SCH (09:19)
[2024-12-11 10:29] LABS: MCHC 35.9 g/dl (32.3-36.5); MEAN CELL VOLUME 97.2 fl (79.0-92.2); MEAN PLT VOLUME 10.0 fl (9.4-12.4); RDW 16.6 % (12.2-16.1)
[2024-12-11 10:57] LABS: GLUCOSE,RANDOM 103.0 mg/dL (74-106)
[2024-12-11 10:58] LABS: TOT PROT 7.2 g/dl (6.4-8.2)
[2024-12-11 10:59] LABS: CO2 26.0 mmol/L (21-32)
[2024-12-11 11:00] LABS: ALK PHOS 98.0 U/L (40-150)
[2024-12-11 11:03] LABS: CREATININE 0.75 mg/dL (0.55-1.3); SGOT/AST 40.0 U/L (5-34); SGPT/ALT 39.0 U/L (0-55)
[2024-12-11] MEDS: traZODone HCL 50 MG TABLET (FP) PO SCH (21:38)
[2024-12-11] MEDS: PANTOPRAZOLE 20 MG TABLET PO ONE (21:38)
[2024-12-12 08:30] VITALS: BP 128/79; PULSE 61; RESP 16; TEMP 97
== END 2024-12-12 11:31 | disposition home or self-care (01) | DRG 773 ==
LOC: YASAS 10:31 → Y3N 14:04
PROVIDERS: ADMIT Family Medicine; ATTEND Allergy & Immunology
PROC: HZ2ZZZZ Detoxification Services for Substance Abuse Treatment (ICD-10-PCS; principal; 2024-12-10)
DX: F11.23 Opioid dependence with withdrawal (principal); F17.210 Nicotine dependence, cigarettes, uncomplicated; F43.10 Post-traumatic stress disorder, unspecified; F32.9 Major depressive disorder, single episode, unspecified; K21.9 Gastro-esophageal reflux disease without esophagitis; M54.50 Low back pain, unspecified; G89.29 Other chronic pain; N40.0 Benign prostatic hyperplasia without lower urinary tract symptoms; I69.854 Hemiplegia and hemiparesis following other cerebrovascular disease affecting left non-dominant side; R73.03 Prediabetes
CPT/HCPCS: 36415; 80053; 80307; 82962; 83036; 85027; 86780